=== PATIENT | male | born 1980 | race Hispanic/Latino ===

== ENCOUNTER 2016-09-08 17:29 | Observation (INO) | payer MEDICAID ==
[2016-09-08 17:30] VITALS: BMI 29.1
[2016-09-08 19:36] VITALS: RESP 16; O2SAT 95
--- NOTE | 2016-09-08 20:23 | C.PDOC ---
Time Seen by Provider: 09/08/16 18:46 Chief Complaint (Nursing): Substance Abuse History Per: Patient History/Exam Limitations: intoxication Onset/Duration Of Symptoms: Unknown (today) Current Symptoms Are (Timing): Still Present Suicide/Self Injury Attempted (Context): None Modifying Factor(s): Alcohol Severity: Moderate Associated Symptoms: denies: Suicidal Thoughts, Suicidal Plan Additional History Per: Prior Records Past Medical History Reviewed: Historical Data, Nursing Documentation, Vital Signs Vital Signs: Last Vital Signs Temp 97.9 F 09/08/16 22:24 Pulse 83 09/08/16 22:24 Resp 16 09/08/16 22:24 BP 128/74 09/08/16 22:24 Pulse Ox 95 09/08/16 22:24 - Medical History PMH: Anxiety, Bipolar Disorder, Depression, Post Traumatic Stress Disorder - [facility] Procedures INTRODUCE OF OTH THERAP SUBST INTO RESP TRACT, VIA OPENING (08/12/16) Family History: States: Unknown Family Hx - Social History Hx Tobacco Use: Yes Hx Alcohol Use: Yes Hx Substance Use: Yes - Immunization History Hx Tetanus Toxoid Vaccination: No Hx Influenza Vaccination: No Hx Pneumococcal Vaccination: No Review Of Systems Review Of Systems: ROS cannot be obtained secondary to pt's inabilty to answer questions. Physical Exam - Physical Exam Appears: No Acute Distress, Other (AOB, intoxicated) Skin: Normal Color, Warm, Dry Head: Atraumatic Eye(s): bilateral: PERRL Neck: Normal ROM, No Midline Cervical Tenderness, No Step Off Deformity, Supple Cardiovascular: Rhythm Regular Respiratory: Normal Breath Sounds, No Accessory Muscle Use Gastrointestinal/Abdominal: Soft Extremity: Normal ROM, No Deformity Neurological/Psych: Eyes Open With Command, Slow To Respond With Command, Other (Moving all extremities) Gait: Unable To Assess ED Course And Treatment O2 Sat by Pulse Oximetry: 95 Pulse Ox Interpretation: Normal ED OBSERVATION Discharge: Yes Date of observation admission: 09/08/16 Time of observation admission: 19:00 - Observation admission statement Patient is being placed in observation because:: Alcohol intoxication. - Goals of Observation Goals of observation are:: Sobriety. - Progress Note Progress Note: 09/08/16 23:29 Pt is now AAOx3. There are no available detox beds. However there are no signs of withdrawal. Will discharge. Disposition Counseled Patient/Family Regarding: Diagnosis, Need For Followup - Disposition Disposition: HOME/ ROUTINE Disposition Time: 23:30 Condition: IMPROVED - Clinical Impression Clinical Impression: Alcohol abuse
[2016-09-08 22:26] VITALS: BP 128/74; PULSE 83; TEMP 97.9
== END 2016-09-08 23:31 | disposition home or self-care (01) ==
LOC: C.ER 17:29 → C.9OBSV 20:25
PROVIDERS: ADMIT Emergency Medicine; ATTEND Emergency Medicine
DX: F10.10 Alcohol abuse, uncomplicated (principal); F31.9 Bipolar disorder, unspecified; Z87.891 Personal history of nicotine dependence; F43.10 Post-traumatic stress disorder, unspecified
CPT/HCPCS: 82948; G0378

== ENCOUNTER 2017-03-09 23:26 | Inpatient (IN) | payer MEDICAID ==
[2017-03-09 23:27] VITALS: BMI 30.9
--- NOTE | 2017-03-09 23:40 | C.PDOC ---
History Of Present Illness 37 year old male with a Hx of PTSD presents to the ER stating he is depressed and suicidal. Patient states his recently kicked him out of his house and he feels he has "lost all hope". Patient has no suicide plan right now but reports he had a previous attempt in the past. Patient admits to drinking half a gallon of [place]; denies physical complaints at this time. Time Seen by Provider: 03/09/17 23:39 Chief Complaint (Nursing): Psychiatric Evaluation History Per: Patient History/Exam Limitations: no limitations Onset/Duration Of Symptoms: Days Current Symptoms Are (Timing): Still Present Suicide/Self Injury Attempted (Context): None Modifying Factor(s): Alcohol Associated Symptoms: Depression, Suicidal Thoughts. denies: Suicidal Plan Involuntary Hold By: None Recent travel outside of the [place]: No Past Medical History Reviewed: Historical Data, Nursing Documentation, Vital Signs Vital Signs: Last Vital Signs Temp 97.6 F 03/10/17 05:08 Pulse 84 03/10/17 05:08 Resp 16 03/10/17 05:08 BP 127/81 03/10/17 05:08 Pulse Ox 98 03/10/17 05:53 - Medical History PMH: Anxiety, Bipolar Disorder, Depression, Post Traumatic Stress Disorder Surgical History: No Surg Hx - [facility] Procedures INTRODUCE OF OTH THERAP SUBST INTO RESP TRACT, VIA OPENING (08/12/16) Family History: States: Unknown Family Hx - Social History Hx Tobacco Use: Yes Hx Alcohol Use: Yes Hx Substance Use: Yes - Immunization History Hx Tetanus Toxoid Vaccination: No Hx Influenza Vaccination: No Hx Pneumococcal Vaccination: No Review Of Systems Constitutional: Positive for: Other (Inebriated). Negative for: Fever, Chills Cardiovascular: Negative for: Chest Pain Respiratory: Negative for: Shortness of Breath Gastrointestinal: Negative for: Abdominal Pain Psych: Positive for: Depression, Suicidal ideation Physical Exam - Physical Exam Appears: Non-toxic, Other (ETOH on breath, Slurred speech) Skin: Normal Color, Warm, Dry Head: Atraumatic, Normacephalic Eye(s): bilateral: Normal Inspection, PERRL, EOMI Ear(s): Bilateral: Normal Nose: Normal Oral Mucosa: Moist Neck: Normal, Supple Chest: Symmetrical Cardiovascular: Rhythm Regular Respiratory: Normal Breath Sounds, No Rales, No Rhonchi, No Wheezing Gastrointestinal/Abdominal: Soft, No Tenderness Neurological/Psych: Oriented x3, Normal Speech, Normal Cognition Additional Physical Exam Comments: No signs of trauma, injury, or IV drug abuse. ED Course And Treatment - Laboratory Results Result Diagrams: 03/09/17 23:58 03/09/17 23:58 ECG: Interpreted By Me ECG Rhythm: Sinus Rhythm ECG Interpretation: Normal, No Acute Changes Rate From EC O2 Sat by Pulse Oximetry: 98 (Room air) Pulse Ox Interpretation: Normal Medical Decision Making Medical Decision Making: Plan: * EKG * Blood work * CXR * Urinalysis * IV fluids Disposition - Disposition Disposition: HOSPITALIZED Disposition Time: 05:50 Condition: FAIR Forms: [employer] ([place]) - Clinical Impression Clinical Impression: Major depression, Alcohol abuse - Scribe Statement The provider has reviewed the documentation as recorded by the Scribe Cesar Browne All medical record entries made by the Scribe were at my direction and personally dictated by me. I have reviewed the chart and agree that the record accurately reflects my personal performance of the history, physical exam, medical decision making, and the department course for this patient. I have also personally directed, reviewed, and agree with the discharge instructions and disposition. Decision To Admit - Pt Status Changed To: Hospital Disposition Of: Inpatient - Admit Certification Admit to Inpatient:: After my assessment, the patient will require hospitalization for at least two midnights. This is because of the severity of symptoms shown, intensity of services needed, and/or the medical risk in this patient being treated as an outpatient. - InPatient: Physician Admission Certification: I certify that this patient requires 2 or more midnights of care for the following reason:: salcido - . Bed Request Type: Psychiatry Admitting Physician: Mayda Lizarraga Patient Diagnosis: Major depression, Alcohol abuse
[2017-03-09] MEDS ORDERED: Sodium Chloride 0.9% 1,000 ML IV ONE (23:50)
[2017-03-10 00:01] LABS: BASO % 0.4 % (0.0-2.0); EOS # 0.2 K/uL (0.0-0.7); EOS % 2.6 % (0.0-4.0); HEMATOCRIT 43.9 % (35.0-51.0); LYMPH % 42.8 % (20.0-40.0); MEAN CELL VOLUME 99.4 fL (80.0-94.0); MEAN CORPUSCULAR HGB CONC 35.2 g/dL (33.0-37.0); MEAN PLATELET VOLUME 8.8 fL (7.2-11.7); MONO # 0.6 K/uL (0.0-0.8); MONO % 8.2 % (0.0-10.0); RED CELL DISTRIBUTION WIDTH 13.4 % (11.5-14.5); WHITE BLOOD COUNT 7.1 K/uL (4.8-10.8)
[2017-03-10 00:05] LABS: URINE BILIRUBIN NEGATIVE (NEGATIVE); URINE BLOOD NEGATIVE (NEGATIVE); URINE COLOR Colorless (YELLOW); URINE GLUCOSE (UA) NORMAL (Normal); URINE KETONE NEGATIVE (NEGATIVE); URINE LEUKOCYTE ESTERASE NEG Leu/uL (Negative); URINE PROTEIN NEGATIVE (NEGATIVE); URINE UROBILINOGEN NORMAL mg/dL (0.2-1.0); WBC URINE 2 /hpf (0-5)
[2017-03-10 00:19] LABS: CHLORIDE 108 mmol/L (98-107)
[2017-03-10 00:20] LABS: POTASSIUM 3.8 mmol/L (3.6-5.2); SODIUM 143 mmol/L (132-148)
[2017-03-10 00:22] LABS: ALB/GLOB RATIO 1.2 (1.0-2.1); ALKALINE PHOSPHATASE 94 U/L (38-126); AST/SGOT 89 U/L (17-59); BILIRUBIN,TOTAL 0.3 mg/dL (0.2-1.3); BLOOD UREA NITROGEN 9 mg/dL (9-20); CARBON DIOXIDE 20 mmol/L (22-30); GFR AFRICAN-AMERICAN > 60; TOTAL PROTEIN 8.3 g/dL (6.3-8.3)
[2017-03-10 00:23] LABS: ALCOHOL SERUM 300 mg/dl (0-10); ALT/SGPT 114 U/L (21-72); GLUCOSE,RANDOM 84 mg/dL (75-110)
--- NOTE | 2017-03-10 08:03 | RAD ---
PROCEDURE: CHEST RADIOGRAPH, 1 VIEW HISTORY: Overdosed COMPARISON: 12/24/2015 FINDINGS: LUNGS: Mild venous congestion. Patchy increased markings at the bases. PLEURA: No pneumothorax or pleural fluid seen. CARDIOVASCULAR: Normal. OSSEOUS STRUCTURES: No significant abnormalities. VISUALIZED UPPER ABDOMEN: Normal. OTHER FINDINGS: None. IMPRESSION: Mild venous congestion. Patchy increased markings at the lung bases.
[2017-03-10] MEDS: Multiple Vitamins Tab PO SCH (10:19)
--- NOTE | 2017-03-10 10:31 | PCM.BM ---
<Jess Pat - Last Filed: 03/10/17 10:28> Treatment Plan Problems - Problems identified on initial assessmt Depression Date Initiated: 03/10/17 Time Initiated: 10:28 Assessment reference: NA Status: Active Substance Abuse Date Initiated: 03/10/17 Time Initiated: 10:29 Assessment reference: NA Status: Active Treatment assets and liabiliti Patient Assests: cooperative, ADL independent, good past tx response, cognitively intact Patient Liabilities: live alone ( kicked pt out), poor support system, relationship conflicts, substance abuse (ETOH) - Milieu Protocol Maintain good personal hygiene: daily Encourage regular showers Conduct patient checks and document Observation sheet: Q15 minutes Maintain personal safety: every shift Educate patient to report safety concerns to staff, every shift Monitor environment for contraband/sharps Medication safety: Monitor for expected outcome, potential side effects: every shift, Assess barriers to learning: every shift, Assess readiness for medication education: every shift <Mayda Lizarraga - Last Filed: 03/11/17 13:28> - Diagnosis (1) Alcohol dependence Status: Acute Interventions: 03/11/17 13:28 * Assess 7x/week regarding severity of withdrawal * Educate regarding risks, benefits, side effects and alternatives of medications * Use Motivational Interviewing for abstinence * Use CBT for relapse prevention * Medication management for withdrawal symptoms * Encourage medication assisted treatment * (2) Major depression Status: Acute Interventions: 03/11/17 13:28 * Assess/adjust medications daily and /or as needed * See patient on an individual basis 7x/week to assess symptoms of depression * Monitor for side effects & effectiveness of medications * <Darling Medeiros - Last Filed: 03/13/17 10:58> Family Contact Family involvement: Famliy/SO not involved Family contact: Patient agrees to contact Family contacted how many times per week?: 0 - Goals for Treatment Patient goals for treatment: "I don't know." Discharge/Continuing Care - Education Needs Education Needs: Patient Medication, Patient Coping Skills, Patient Placement options, Patient Community resources - Discharge Discharge Criteria: Tolerates medication w/o severe side effects, No longer exhibiting s/s of withdrawal Discharge to:: Home - Treatment Team Participation Discussed with Family/SO: No Was Patient/Family/SO present at Treatment Team Meeting: Yes
--- NOTE | 2017-03-10 14:41 | PCM.PSYCH ---
Initial Psychiatric Evaluation - Initial Psychiatric Evaluation Type of Admission: Voluntary Legal Status: Capacity Chief Complaint (in patient's own words): "Afraid I was gonna do something bad" History of Present Illness and Precipitating Events: He is seen, chart reviewed and case discussed. A 37 year old male with a past history of alcoholism, PTSD and depression was admitted for depressed mood. Pt admits for the past year he has been having arguments with his 3rd . Pt feels very depressed over it. He states "I'm losing everything and just tired of rebuilding over and over again. " Pt currently denies any suicidal ideation but has a history of attempting suicide earlier this year in July by overdosing on medications. Pt admits to drinking 2-3 beers a day and drinks more heavily on the weekends with friends. Pt admitted to smoking marijuana once in the past and taking one pill of ecstasy last week. Pt denies smoking cigarettes now or in the past. Pt was previously seeing Dr. Lowe at [facility] in the past. Pt was previously prescribed seroquel, zoloft, klonopin but no longer takes them. Denies any legal issues currently or in the past. Pt has been 3 times and has 2 children (13 and 5 years old). 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 PMH: GERD, herniated verterbal disks Allergies: Denies Family Hx: Father: depression, Mother: Alcohol use disorder Current Medications: Active Medications Generic Name Dose Route Start Last Admin Trade Name Freq PRN Reason Stop Dose Admin Chlordiazepoxide 25 mg 03/10/17 12:00 03/10/17 13:19 Librium PO 03/14/17 11:59 25 mg Q6 VILMA Administration Taper Chlordiazepoxide 25 mg 03/10/17 08:47 Librium PO Q4H PRN Alcohol Withdrawal Clonidine HCl 0.1 mg 03/10/17 08:47 Catapres PO Q4H PRN Symptoms of alcohol withdrawl Folic Acid 1 mg 03/10/17 10:00 03/10/17 10:19 Folic Acid PO 1 mg DAILY VILMA Administration Haloperidol 5 mg 03/10/17 08:48 Haldol PO Q1H PRN agitation, max 4x/24h Hydroxyzine HCl 25 mg 03/10/17 08:48 03/10/17 10:19 Atarax PO 25 mg Q4H PRN Administration Anxiety Ibuprofen 400 mg 03/10/17 08:48 03/10/17 10:19 Motrin Tab PO 400 mg Q6H PRN Administration Pain, moderate (4-7) Multivitamins 1 tab 03/10/17 10:00 03/10/17 10:19 Hexavitamin PO 1 tab DAILY VILMA Administration Pantoprazole Sodium 20 mg 03/10/17 13:45 Protonix Ec Tab PO DAILY VILMA Sertraline HCl 25 mg 03/10/17 13:45 Zoloft PO DAILY VILMA Thiamine HCl 100 mg 03/10/17 10:00 03/10/17 10:19 Vitamin B1 Tab PO 100 mg DAILY VILMA Administration Trazodone HCl 100 mg 03/10/17 08:47 Desyrel PO HS PRN Insomnia Past Psychiatric History - Past Psychiatric History Pertinent Medical Hx (Current Medical&Sleep Prob, Allergies): Allergies Allergy/AdvReac Type Severity Reaction Status Date / Time No Known Allergies Allergy Verified 11/27/16 07:33 No Known Home Med 03/09/17 Review of Systems - Neurological Neurological: UNREMARKABLE - Psychiatric Psychiatric: Anhedonia, Anxiety, Depression, Hopelessness. absent: Abnormal Sleep Pattern, Auditory Hallucinations, Change in Appetite, Difficulty Concentrating, Hallucinations, Homicidal Ideation, Mood Swings, Paranoia, Suicidal Ideation, Visual Hallucinations Mental Status Examination - Personal Presentation Personal Presentation: Looks stated age - Affect Affect: Constricted - Motor Activity Motor Activity: Calm - Reliability in Providing Information Reliability in Providing Information: Fair - Speech Speech: Organized - Mood Mood: Depressed - Formal Thought Process Formal Thought Process: No Impairment - Obsessions/Compulsions Obsessions: No Compulsions: No - Cognitive Functions Orientation: Person, Place, Situation, Time Sensorium: Alert Attention/Concentration: Attentive Abstract Thinking: [place] Estimate of Intelligence: Average Judgement: Intact, as evidence by: Insight regarding need for hospitalization Memory: Recent intact, as evidence by: Ability to recall events of the day, Remote intact, as evidenced by: Abilit to recall sig. life events - Risk Risk: Withdrawal, Diminished functioning - Strength & Assets Inventory Strength & Assets Inventory: Life experience, Cooperative - Limitations Limitations: Living alone DSM 5 DX - DSM 5 DSM 5 Diagnosis: major depressive d/o - recurrent, severe, without psychosis Alcohol Use Disorder-Severe Alcohol withdrawal uncomplicated - Recommended/Plan of Treatment Treatment Recommendations and Plan of Treatment: Librium Taper 25 mg Atarax - 25 mg PRN Zoloft 25 mg, to be increased Trazodone - 100 mg PRN Attend groups and activities Individual therapy Psychoeducation and support Encourage compliance with meds and after care Refer to outpatient program Teach healthy lifestyle methods, i.e. diet, exercise, meditation Smoking cessation Discussed setting up a family meeting with next week to discuss treatment and other familial issues. 32 min Projected ELOS: 5-6 days Prognosis: good w treatment - Smoking Cessation Smoking Cessation Initiated: Yes
[2017-03-10] MEDS: Pantoprazole 20 mg EC Tab PO SCH (14:47)
[2017-03-11] MEDS: Multiple Vitamins Tab PO SCH (09:34)
[2017-03-11] MEDS: Pantoprazole 20 mg EC Tab PO SCH (10:07)
--- NOTE | 2017-03-11 12:40 | PCM.PYCHPN ---
Psychiatric Progress Note - Psychiatric Progress Note Patient seen today, length of contact: 15 minutes Patient Chief Complaint: I still feeling depressed. Problems Identified/Issues Discussed: Patient seen. Chart reviewed. Case discussed with staff. Issues related to illness and treatment were discussed with the patient. Reported compliant with treatment with no adverse affects. Tolerating treatment very well. Reported still feeling depressed. Asking for Seroquel 800 mg daily. Patient reported he was taking Seroquel 400 mg twice a day until 2 months ago when he stopped seeing his psychiatrist. Will increase sertraline dose to 50 mg. And if needed will let Seroquel from low -dose. At the time of evaluation, patient was awake alert oriented 3, had no delusions , no auditory or visual hallucinations, no suicidal ideations or homicidal ideations. Medical Problems: GERD Diagnostic Results: Reviewed Medication Change: Yes (Dose of sertraline increased to 50 mg) Medical Record Reviewed: Yes Mental Status Examination - Cognitive Function Orientation: Person, Place, Situation, Time Memory: Intact Attention: WNL Concentration: WNL Association: WNL Fund of Knowledge: [facility] Decription of patient's judgement and insights: Fair - Mood Mood: Depressed - Affect Affect: Depressed - Speech Speech: Appropriate - Formal Thought Process Formal Thought Process: No Impairment Psychotic Thoughts and Behaviors: None - Suicidal Ideation Suicidal Ideation: No - Homicidal Ideation Homicidal Ideation: No Goal/Treatment Plan - Goal/Treatment Plan Need for Continued Stay: Remain at risks for inpatient hospitalization, Discharge may exacerbated symptoms, Severe functional impairment Progress Toward Problem(s) and Goals/Treatment Plan: Patient education Supportive therapy Continue treatment as before Motivational interview for abstinence CBT for relapse prevention We will go back to [facility] for follow-up. After discharge from the hospital Estimated Date of D/C: 03/17/17 - Smoking Cessation Smoking Cessation Initiated: No
[2017-03-12] MEDS: Pantoprazole 20 mg EC Tab PO SCH (09:36)
[2017-03-12] MEDS: Multiple Vitamins Tab PO SCH (09:36)
--- NOTE | 2017-03-12 13:48 | PCM.PYCHPN ---
Psychiatric Progress Note - Psychiatric Progress Note Patient seen today, length of contact: 15 minutes Patient Chief Complaint: I still feeling depressed. Problems Identified/Issues Discussed: Patient seen. Chart reviewed. Case discussed with staff. Issues related to illness and treatment were discussed with the patient. Reported compliant with treatment with no adverse affects. Tolerating treatment very well. Reported still feeling depressed. We will start Seroquel 100 mg at bedtime At the time of evaluation, patient was awake alert oriented 3, had no delusions , no auditory or visual hallucinations, no suicidal ideations or homicidal ideations. Medical Problems: GERD Diagnostic Results: Reviewed DSM 5 Symptoms Update: Improving with treatment Medication Change: Yes (Started Seroquel 100 mg at bedtime) Medical Record Reviewed: Yes Mental Status Examination - Cognitive Function Orientation: Person, Place, Situation, Time Memory: Intact Attention: WNL Concentration: WNL Association: WNL Fund of Knowledge: WN Decription of patient's judgement and insights: Fair - Mood Mood: Depressed - Affect Affect: Depressed - Speech Speech: Appropriate - Formal Thought Process Formal Thought Process: No Impairment Psychotic Thoughts and Behaviors: None - Suicidal Ideation Suicidal Ideation: No - Homicidal Ideation Homicidal Ideation: No Goal/Treatment Plan - Goal/Treatment Plan Need for Continued Stay: Remain at risks for inpatient hospitalization, Discharge may exacerbated symptoms, Severe functional impairment Progress Toward Problem(s) and Goals/Treatment Plan: Patient education Supportive therapy We'll start Seroquel 100 mg at bedtime Continue rest of the treatment as before Motivational interview for abstinence CBT for relapse prevention We will go back to [facility] for follow-up. After discharge from the hospital Estimated Date of D/C: 03/17/17 - Smoking Cessation Smoking Cessation Initiated: No
[2017-03-13] MEDS: Pantoprazole 20 mg EC Tab PO SCH (10:29)
[2017-03-13] MEDS: Multiple Vitamins Tab PO SCH (10:29)
--- NOTE | 2017-03-13 12:39 | CARD ---
APPROVED REPORT EKG Measurement Heart [id number] <Conclusion> Normal sinus rhythm Normal ECG
--- NOTE | 2017-03-13 14:04 | PCM.PYCHPN ---
Psychiatric Progress Note - Psychiatric Progress Note Patient seen today, length of contact: 15 minutes Patient Chief Complaint: "Not feel good" Problems Identified/Issues Discussed: The pt is seen, chart reviewed, case discussed with staff. Support given, CBT and [place] used briefly Pt feels depressed, anxious and angry Denies any SI or HI Refused librium taper over the weekend educated Pt that medications will take time to start working for his anxiety and depression. Pt admits to having PTSD symptoms lately. 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 No other SEs from medications, risks discussed. Recommended pt to speak with social workers to find rehabilitation programs to attend after discharge from hospital Medication Change: Yes (add prazosin, increase zoloft) Medical Record Reviewed: Yes Mental Status Examination - Cognitive Function Orientation: Person, Place, Situation, Time Memory: Intact Attention: WNL Concentration: WNL Association: WN Fund of Knowledge: WNL - Mood Mood: Depressed - Affect Affect: Depressed - Speech Speech: Appropriate - Formal Thought Process Formal Thought Process: No Impairment - Suicidal Ideation Suicidal Ideation: No - Homicidal Ideation Homicidal Ideation: No Goal/Treatment Plan - Goal/Treatment Plan Need for Continued Stay: Remain at risks for inpatient hospitalization, Discharge may exacerbated symptoms, Severe functional impairment Progress Toward Problem(s) and Goals/Treatment Plan: Librium Taper ending and he is not using much Zoloft increased Seroquel 100 mg Prazosin for nightmares, insomnia Attend groups and activities Individual therapy Psychoeducation and support Encourage compliance with meds and after care Refer to outpatient program Teach healthy lifestyle methods, i.e. diet, exercise, meditation Smoking cessation Estimated Date of D/C: 03/17/17 - Smoking Cessation Smoking Cessation Initiated: No
[2017-03-14] MEDS: Pantoprazole 20 mg EC Tab PO SCH (10:03)
[2017-03-14] MEDS: Multiple Vitamins Tab PO SCH (10:03)
--- NOTE | 2017-03-14 14:09 | PCM.PYCHPN ---
Psychiatric Progress Note - Psychiatric Progress Note Patient seen today, length of contact: 15 minutes Patient Chief Complaint: "Feel alright" Problems Identified/Issues Discussed: The pt is seen, chart reviewed, case discussed with staff. Support given, CBT and [place] used briefly Pt "Slept fine". Will switch to seroquel administration from 9 pm to 6 pm to improve sleep Pt not complaining of SI, or PTSD symptoms today No SEs after increasing Zoloft and starting on prazosin, risks discussed Pt mentioned that he spoke with his yesterday about discharge plans. Pt's wants him to come back home. Recommended Pt ask to see if she can set up appt to have a family meeting sometime this week Pt wants to attend outpatient programs after discharge Recommended speaking with lithopone mill worker about programs in the area Will switch to seroquel administration from 9 pm to 6 pm to improve sleep Medication Change: Yes (add prazosin, increase zoloft) Medical Record Reviewed: Yes Mental Status Examination - Cognitive Function Orientation: Person, Place, Situation, Time Memory: Intact Attention: WNL Concentration: WNL Association: WNL Fund of Knowledge: WNL - Mood Mood: Depressed - Affect Affect: Depressed - Speech Speech: Appropriate - Formal Thought Process Formal Thought Process: No Impairment - Suicidal Ideation Suicidal Ideation: No - Homicidal Ideation Homicidal Ideation: No Goal/Treatment Plan - Goal/Treatment Plan Need for Continued Stay: Remain at risks for inpatient hospitalization, Discharge may exacerbated symptoms, Severe functional impairment Progress Toward Problem(s) and Goals/Treatment Plan: Librium Taper ending and he is not using much Zoloft increased Seroquel 100 mg Prazosin for nightmares, insomnia Attend groups and activities Individual therapy Psychoeducation and support Encourage compliance with meds and after care Refer to outpatient program Follow Up with Pt to see if will come in for a family meeting session Teach healthy lifestyle methods, i.e. diet, exercise, meditation Smoking cessation Estimated Date of D/C: 03/17/17 - Smoking Cessation Smoking Cessation Initiated: No
[2017-03-15] MEDS: Pantoprazole 20 mg EC Tab PO SCH (10:11)
[2017-03-15] MEDS: Multiple Vitamins Tab PO SCH (10:11)
--- NOTE | 2017-03-15 13:49 | PCM.PYCHPN ---
Psychiatric Progress Note - Psychiatric Progress Note Patient seen today, length of contact: 15 minutes Patient Chief Complaint: "Not feeling good" Problems Identified/Issues Discussed: The pt is seen, chart reviewed, case discussed with staff. Support given, CBT and [place] used briefly Pt "Slept fine". Pt "feels crappy" Pt not complaining of SI, or PTSD symptoms today No SEs after increasing Zoloft and starting on prazosin, risks discussed Pt spoke with and said that she cannot come in for a family meeting wants him to go to a program but Pt thinks program is a waste of time Encouraged Pt to start calling rehab programs in the area and speak with SW to figure out plan after discharge Medication Change: No Medical Record Reviewed: Yes Mental Status Examination - Cognitive Function Orientation: Person, Place, Situation, Time Memory: Intact Attention: WNL Concentration: WNL Association: WNL Fund of Knowledge: WNL - Mood Mood: Depressed, Other (irritated) - Affect Affect: Depressed - Speech Speech: Appropriate - Formal Thought Process Formal Thought Process: No Impairment - Suicidal Ideation Suicidal Ideation: No - Homicidal Ideation Homicidal Ideation: No Goal/Treatment Plan - Goal/Treatment Plan Need for Continued Stay: Remain at risks for inpatient hospitalization, Discharge may exacerbated symptoms, Severe functional impairment Progress Toward Problem(s) and Goals/Treatment Plan: Librium Taper ending and he is not using much Zoloft Seroquel 100 mg Prazosin for nightmares, insomnia Attend groups and activities Individual therapy Psychoeducation and support Encourage compliance with meds and after care Speak with SW about rehab programs Teach healthy lifestyle methods, i.e. diet, exercise, meditation Smoking cessation Estimated Date of D/C: 03/20/17 - Smoking Cessation Smoking Cessation Initiated: No
[2017-03-16] MEDS: Multiple Vitamins Tab PO SCH (09:03)
[2017-03-16] MEDS: Pantoprazole 20 mg EC Tab PO SCH (09:03)
--- NOTE | 2017-03-16 11:11 | PCM.PYCHPN ---
Psychiatric Progress Note - Psychiatric Progress Note Patient seen today, length of contact: 15 minutes Patient Chief Complaint: "Not feeling good" Problems Identified/Issues Discussed: The pt is seen, chart reviewed, case discussed with staff. Support given, CBT and [place] used briefly Pt slept well with no nightmares Pt continues to feel very anxious educated pt about increasing his Zoloft and how it takes time for it to start working Pt continues to feel reluctant about attending rehab Educated pt about importance in attending rehab program after discharge Asked permission to call and speak with about current treatment and aftercare Will add Buspar to medications for anxiety Medication Change: Yes (add buspar) Medical Record Reviewed: Yes Mental Status Examination - Cognitive Function Orientation: Person, Place, Situation, Time Memory: Intact Attention: WNL Concentration: WNL Association: WNL Fund of Knowledge: WNL - Mood Mood: Depressed, Anxious, Other (irritated) - Affect Affect: Depressed - Speech Speech: Appropriate - Formal Thought Process Formal Thought Process: No Impairment - Suicidal Ideation Suicidal Ideation: No - Homicidal Ideation Homicidal Ideation: No Goal/Treatment Plan - Goal/Treatment Plan Need for Continued Stay: Remain at risks for inpatient hospitalization, Discharge may exacerbated symptoms, Severe functional impairment Progress Toward Problem(s) and Goals/Treatment Plan: Librium Taper ending and he is not using much Zoloft Seroquel 100 mg Prazosin for nightmares, insomnia Buspar Attend groups and activities Individual therapy Psychoeducation and support Encourage compliance with meds and after care Speak with SW about rehab programs Teach healthy lifestyle methods, i.e. diet, exercise, meditation Smoking cessation Estimated Date of D/C: 03/20/17 - Smoking Cessation Smoking Cessation Initiated: No
[2017-03-17] MEDS: Pantoprazole 20 mg EC Tab PO SCH (10:46)
[2017-03-17] MEDS: Multiple Vitamins Tab PO SCH (10:46)
--- NOTE | 2017-03-17 13:15 | PCM.PYCHPN ---
Psychiatric Progress Note - Psychiatric Progress Note Patient seen today, length of contact: 15 minutes Patient Chief Complaint: "Better today" Problems Identified/Issues Discussed: The pt is seen, chart reviewed, case discussed with staff. The pt is compliant with medications and reports no side-effects. Symptoms are improving but needs more time to stabilize. After care discussed, support and psychoeducation given. Freight Clerk called his with his permission but she was not home and vm was full He is being referred to [facility] as well Somewhat more talkative and cooperative today Medication Change: No Medical Record Reviewed: Yes Mental Status Examination - Cognitive Function Orientation: Person, Place, Situation, Time Memory: Intact Attention: WNL Concentration: WNL Association: WNL Fund of Knowledge: WNL - Mood Mood: Depressed, Anxious, Other (irritated) - Affect Affect: Depressed - Speech Speech: Appropriate - Formal Thought Process Formal Thought Process: No Impairment - Suicidal Ideation Suicidal Ideation: No - Homicidal Ideation Homicidal Ideation: No Goal/Treatment Plan - Goal/Treatment Plan Need for Continued Stay: Remain at risks for inpatient hospitalization, Discharge may exacerbated symptoms, Severe functional impairment Progress Toward Problem(s) and Goals/Treatment Plan: Zoloft Seroquel 200 mg Prazosin for nightmares, insomnia Buspar Attend groups and activities Individual therapy Psychoeducation and support Encourage compliance with meds and after care Speak with SW about rehab programs: applied to [facility] in [place] Teach healthy lifestyle methods, i.e. diet, exercise, meditation Smoking cessation Estimated Date of D/C: 03/20/17
[2017-03-18] MEDS: Pantoprazole 20 mg EC Tab PO SCH (09:30)
[2017-03-18] MEDS: Multiple Vitamins Tab PO SCH (09:30)
--- NOTE | 2017-03-18 17:46 | PCM.PYCHPN ---
Psychiatric Progress Note - Psychiatric Progress Note Patient seen today, length of contact: 15 minutes Patient Chief Complaint: I'm feeling better Problems Identified/Issues Discussed: Patient was seen. Chart was reviewed important content noted. Nurse input received that he is still isolated. Patient has no new complaints. No events overnight. Patient slept well and is eating well. Patient denies any depressive symptoms. Denies suicidal or homicidal ideation. Patient does not report hallucinations. No delusions elicited. No paranoia elicited. Patient has remained in good clinical and behavioral control. Patient is finding medications beneficial and would like to continue with treatment plan. Diagnostic Results: No new lab DSM 5 Symptoms Update: major depressive d/o - recurrent, severe, without psychosis Alcohol Use Disorder-Severe Alcohol withdrawal uncomplicated Medication Change: No Medical Record Reviewed: Yes Mental Status Examination - Cognitive Function Orientation: Person, Place, Situation, Time Memory: Intact Attention: WNL Concentration: WNL Association: WNL Fund of Knowledge: WN - Mood Mood: Depressed, Anxious - Affect Affect: Constricted - Speech Speech: Appropriate - Formal Thought Process Formal Thought Process: No Impairment - Suicidal Ideation Suicidal Ideation: No - Homicidal Ideation Homicidal Ideation: No Goal/Treatment Plan - Goal/Treatment Plan Need for Continued Stay: Remain at risks for inpatient hospitalization, Discharge may exacerbated symptoms, Severe functional impairment Progress Toward Problem(s) and Goals/Treatment Plan: Zoloft Seroquel 200 mg Prazosin for nightmares, insomnia Buspar Attend groups and activities Individual therapy Psychoeducation and support Encourage compliance with meds and after care Estimated Date of D/C: 03/20/17 - Smoking Cessation Smoking Cessation Initiated: Yes
[2017-03-19] MEDS: Pantoprazole 20 mg EC Tab PO SCH (09:45)
[2017-03-19] MEDS: Multiple Vitamins Tab PO SCH (09:45)
--- NOTE | 2017-03-19 17:20 | PCM.PYCHPN ---
Psychiatric Progress Note - Psychiatric Progress Note Patient seen today, length of contact: 15 minutes Patient Chief Complaint: I'm better Problems Identified/Issues Discussed: Patient was seen. Chart was reviewed important content noted. Nurse input received that he is still isolated and he signed 48 hour signout notice yesterday evening. Patient has no new complaints. No events overnight. Patient slept well and is eating well. Patient denies any depressive symptoms. Denies suicidal or homicidal ideation. Patient does not report hallucinations. No delusions elicited. No paranoia elicited. Patient has remained in good clinical and behavioral control. Patient is finding medications beneficial and would like to continue with treatment plan. Diagnostic Results: No new lab DSM 5 Symptoms Update: MDD, SEVERE, WITHOUT PSYCHOTIC FEATURES. ETOH USE D/O PTSD Medication Change: No Medical Record Reviewed: Yes Mental Status Examination - Cognitive Function Orientation: Person, Place, Situation, Time Memory: Intact Attention: WNL Concentration: WNL Association: [facility] Fund of Knowledge: [facility] Decription of patient's judgement and insights: limited/ fair Addtional comments: Pt is superficially cooperative - Mood Mood: Depressed, Anxious - Affect Affect: Constricted - Speech Speech: Appropriate - Formal Thought Process Formal Thought Process: No Impairment - Suicidal Ideation Suicidal Ideation: No - Homicidal Ideation Homicidal Ideation: No Goal/Treatment Plan - Goal/Treatment Plan Need for Continued Stay: Remain at risks for inpatient hospitalization, Discharge may exacerbated symptoms, Severe functional impairment Progress Toward Problem(s) and Goals/Treatment Plan: Zoloft Seroquel 200 mg Prazosin for nightmares, insomnia Buspar Attend groups and activities Individual therapy Psychoeducation and support Encourage compliance with meds and after care Estimated Date of D/C: 03/20/17
[2017-03-20 08:08] VITALS: BP 120/76; PULSE 78; RESP 16; TEMP 98; O2SAT 99
[2017-03-20] MEDS: Multiple Vitamins Tab PO SCH (09:40)
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
[2017-03-20] MEDS: Pantoprazole 20 mg EC Tab PO SCH (09:49)
== END 2017-03-20 12:30 | disposition home or self-care (01) | DRG 430 ==
LOC: C.ER 23:26 → C.5E 03-10 06:21
PROVIDERS: ADMIT Psychiatry & Neurology Psychiatry; ATTEND Psychiatry & Neurology Psychiatry
PROC: GZ58ZZZ Individual Psychotherapy, Cognitive-Behavioral (ICD-10-PCS; principal; 2017-03-10)
PROC: GZ56ZZZ Individual Psychotherapy, Supportive (ICD-10-PCS; 2017-03-10)
DX: F32.2 Major depressive disorder, single episode, severe without psychotic features (principal); F10.239 Alcohol dependence with withdrawal, unspecified; F43.10 Post-traumatic stress disorder, unspecified; G47.00 Insomnia, unspecified; K21.9 Gastro-esophageal reflux disease without esophagitis; Z79.899 Other long term (current) drug therapy; Z81.8 Family history of other mental and behavioral disorders

== ENCOUNTER 2017-05-11 00:26 | Emergency (ER) | payer MEDICAID ==
[2017-05-11 00:27] VITALS: BMI 30.9
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
[2017-05-11 00:42] VITALS: RESP 20; O2SAT 99
[2017-05-11 01:23] VITALS: BP 128/78; PULSE 90; TEMP 98.1
--- NOTE | 2017-05-11 08:26 | RAD ---
PROCEDURE: HISTORY: right jaw pain COMPARISON: None TECHNIQUE: Five views open and close TMJ joint images included ; study limited due to apparent intoxicated state FINDINGS: No gross fracture or dislocation IMPRESSION: Limited exam. No gross fracture or dislocation
== END 2017-05-11 01:20 | disposition home or self-care (01) ==
LOC: C.ER 00:26
DX: S09.93XA Unspecified injury of face, initial encounter (principal); Y09 Assault by unspecified means; Z87.891 Personal history of nicotine dependence
CPT/HCPCS: 70110; 96372; 99283; J1885

== ENCOUNTER 2017-05-14 04:39 | Emergency (ER) | payer MEDICAID ==
[2017-05-14 04:39] VITALS: BMI 30.9
[2017-05-14 04:55] VITALS: BP 125/88; PULSE 120; RESP 20; TEMP 98.5; O2SAT 99
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
--- NOTE | 2017-05-14 11:50 | RAD ---
Mandible four views History: Left jaw pain. Comparison: None available. Findings: Limited study secondary to patient noncompliance. On the frontal view, are 2 transverse linear oblique lucencies at the level of the inferior left mandible just left of midline extending superiorly. This is of uncertain clinical etiology however nondisplaced fracture cannot entirely be excluded. This is not as well appreciated on the additional sequences. Correlation with facial bone CT would be helpful for further evaluation if clinically indicated. Paranasal sinuses appear grossly preserved. Visualized bony orbits appear grossly preserved. Bilateral mastoid air cells appear preserved. Impression: Limited study secondary to patient noncompliance. On the frontal view, are 2 transverse linear oblique lucencies at the level of the inferior left mandible just left of midline extending superiorly. This is of uncertain clinical etiology however nondisplaced fracture cannot entirely be excluded. This is not as well appreciated on the additional sequences. Correlation with facial bone CT would be helpful for further evaluation if clinically indicated.
== END 2017-05-14 05:09 | disposition home or self-care (01) ==
LOC: C.ER 04:39
DX: T14.8XXA Other injury of unspecified body region, initial encounter (principal); Y09 Assault by unspecified means; F10.20 Alcohol dependence, uncomplicated; Y90.9 Presence of alcohol in blood, level not specified